=== PATIENT | female | born 1930 | race Caucasian/White ===

== ENCOUNTER 2017-06-30 04:39 | Inpatient (IN) | payer OTHER ==
[~2017-06-30] VITALS: Ht 147.3 cm; Wt 75.0 kg
[2017-06-30 05:20] LABS: BASOPHIL % 0.5 % (0-2); PLATELET COUNT 151 x10^3mcL (130-400)
[2017-06-30 05:21] LABS: CALCIUM 8.6 mg/dL (8.5-10.1); CARBON DIOXIDE 30.6 mmol/L (21-32); CHLORIDE SERUM 97 mmol/L (98-107); CREATININE SERUM 0.6 mg/dL (0.6-1.0); GLUCOSE SERUM 88 mg/dL (74-106); SODIUM SERUM 133 mmol/L (136-145)
[2017-06-30 05:39] LABS: ALBUMIN 2.9 g/dL (3.4-5.0); ALKALINE PHOSPHATASE 67 U/L (46-116); ALT/SGPT 24 U/L (14-59); AST/SGOT 39 U/L (15-37); BILIRUBIN TOTAL 0.4 mg/dL (0.20-1.00)
[2017-06-30] MEDS ORDERED: XARELTO20 M1 PO (05:55)
[2017-06-30] MEDS ORDERED: MECLIZINE HYD12.5 MG PO (05:56)
[2017-06-30 08:00] LABS: CHOLESTEROL/HDL RATIO 2.4; PHOSPHOROUS 3.2 mg/dL (2.5-4.9)
[2017-06-30 08:14] LABS: FREE T4 1.2 ng/dL (0.76-1.46); FREE THYROXINE INDEX 2.9 ug/dL (1.4-4.5); T4(THYROXINE) 7.8 ug/dL (4.7-13.3)
[2017-06-30 08:50] LABS: T3 TOTAL 0.69 ng/mL
[2017-06-30 09:07] LABS: UA SPECIFIC GRAVITY >=1.030 (1.005-1.035); microscopic required? YES; urine erythrocyte 1+ (NEGATIVE)
[2017-06-30 10:22] VITALS: BP 97/52
[2017-06-30 10:25] VITALS: BP 97/52
[2017-06-30 13:27] VITALS: BP 103/59
[2017-06-30 18:16] VITALS: BP 112/65
[2017-06-30 21:47] VITALS: BP 114/64
[2017-07-01 06:23] VITALS: BP 126/68
[2017-07-01 06:56] LABS: PLATELET COUNT 145 x10^3mcL (130-400); RED CELL DISTRIBUTION WIDTH 13.4 % (11.5-14.5)
[2017-07-01 07:01] LABS: CALCIUM 8.4 mg/dL (8.5-10.1); CARBON DIOXIDE 32.1 mmol/L (21-32); CHLORIDE SERUM 103 mmol/L (98-107); CREATININE SERUM 0.7 mg/dL (0.6-1.0); GLUCOSE SERUM 140 mg/dL (74-106); MAGNESIUM 2.1 mg/dL (1.8-2.4); PHOSPHOROUS 4.5 mg/dL (2.5-4.9); POTASSIUM SERUM 4.6 mmol/L (3.5-5.1); SODIUM SERUM 140 mmol/L (136-145)
[2017-07-01 10:33] VITALS: BP 105/59
[2017-07-01 11:30] LABS: BAND NEUTROPHIL 1 % (0-10); MONOCYTE 10 % (0-7); SEGMENTED NEUTROPHILS 57 % (37-75); rbc morphology (normal/abnorm) NORMAL (NORMAL)
[2017-07-01 14:44] VITALS: BP 118/69
[2017-07-01 19:00] VITALS: BP 120/69
[2017-07-01 21:42] VITALS: BP 121/76
[2017-07-02 06:21] VITALS: BP 113/84
[2017-07-02 06:28] LABS: PLATELET COUNT 152 x10^3mcL (130-400); RED CELL DISTRIBUTION WIDTH 13.4 % (11.5-14.5)
[2017-07-02 06:42] LABS: CALCIUM 8.8 mg/dL (8.5-10.1); CARBON DIOXIDE 28.3 mmol/L (21-32); CHLORIDE SERUM 104 mmol/L (98-107); CREATININE SERUM 0.6 mg/dL (0.6-1.0); GLUCOSE SERUM 142 mg/dL (74-106); PHOSPHOROUS 2.3 mg/dL (2.5-4.9); POTASSIUM SERUM 4.1 mmol/L (3.5-5.1); SODIUM SERUM 138 mmol/L (136-145)
[2017-07-02 09:35] VITALS: BP 129/64
[2017-07-02 10:51] LABS: BAND NEUTROPHIL 18 % (0-10); BASOPHIL 0 % (0-2); MONOCYTE 9 % (0-7); SEGMENTED NEUTROPHILS 60 % (37-75)
[2017-07-02 10:52] LABS: PLATELET MORPHOLOGY PLATELETS NORMAL
[2017-07-02 12:15] VITALS: BP 109/71
[2017-07-02 17:10] VITALS: BP 152/79
[2017-07-02 22:42] VITALS: BP 163/140
[2017-07-03] VITALS (8 sets, daily range): BP systolic 110–167; BP diastolic 55–101
[2017-07-03 06:34] LABS: PLATELET COUNT 161 x10^3mcL (130-400); RED CELL DISTRIBUTION WIDTH 13.4 % (11.5-14.5)
[2017-07-03 06:49] LABS: BASOPHIL % 0 % (0-2)
[2017-07-03 06:58] LABS: CALCIUM 9.3 mg/dL (8.5-10.1); CARBON DIOXIDE 30.6 mmol/L (21-32); CHLORIDE SERUM 105 mmol/L (98-107); CREATININE SERUM 0.5 mg/dL (0.6-1.0); GLUCOSE SERUM 80 mg/dL (74-106); MAGNESIUM 2.1 mg/dL (1.8-2.4); PHOSPHOROUS 1.9 mg/dL (2.5-4.9); POTASSIUM SERUM 3.7 mmol/L (3.5-5.1); SODIUM SERUM 143 mmol/L (136-145)
[2017-07-04 05:31] VITALS: BP 119/71
[2017-07-04 09:01] VITALS: BP 133/78
[2017-07-04 14:09] VITALS: BP 120/80
[2017-07-04 16:41] LABS: BASOPHIL % 0.3 % (0-2); PLATELET COUNT 136 x10^3mcL (130-400); RED CELL DISTRIBUTION WIDTH 13.6 % (11.5-14.5)
[2017-07-04 17:34] VITALS: BP 133/74
[2017-07-04 21:01] VITALS: BP 137/74
[2017-07-05 05:36] VITALS: BP 140/74
[2017-07-05 06:44] LABS: BASOPHIL % 0.3 % (0-2); PLATELET COUNT 148 x10^3mcL (130-400); RED CELL DISTRIBUTION WIDTH 13.3 % (11.5-14.5)
[2017-07-05 06:50] LABS: CALCIUM 8.5 mg/dL (8.5-10.1); CARBON DIOXIDE 35.2 mmol/L (21-32); CHLORIDE SERUM 103 mmol/L (98-107); CREATININE SERUM 0.5 mg/dL (0.6-1.0); GLUCOSE SERUM 89 mg/dL (74-106); POTASSIUM SERUM 3.8 mmol/L (3.5-5.1); SODIUM SERUM 141 mmol/L (136-145)
[2017-07-05 09:55] VITALS: BP 118/69
[2017-07-05 13:50] VITALS: BP 135/64
[2017-07-05] MEDS ORDERED: COL100 PO (15:54)
[2017-07-05] MEDS ORDERED: NPHOS PO (15:54)
[2017-07-05] MEDS ORDERED: ZOFI IV (15:54)
[2017-07-05] MEDS ORDERED: VANCOMYCIN1 GM/200 M IV (15:54)
[2017-07-05] MEDS ORDERED: TYL325 PO (15:54)
[2017-07-05] MEDS ORDERED: LEVAQUIN750 MG PO (15:54)
[2017-07-05] MEDS ORDERED: PEP20 PO (15:54)
[2017-07-05] MEDS ORDERED: TAM75 PO (15:54)
[2017-07-05] MEDS ORDERED: XARELTO20 M1 PO (15:54)
[2017-07-05] MEDS ORDERED: MECLIZINE HCL12.5 MG PO (15:54)
[2017-07-05] MEDS ORDERED: ACETYLCYSTEINE30 ML HHN (15:54)
[2017-07-05] MEDS ORDERED: ROBDML PO (15:54)
[2017-07-05] MEDS ORDERED: LAC PO (15:54)
[2017-07-05] MEDS ORDERED: IPRATROPIUM BROM3 M2 HHN ×2 (15:54)
[2017-07-05] MEDS ORDERED: MONTELUKAST SOD10 M1 PO (15:54)
[2017-07-05 17:50] VITALS: BP 131/88
== END 2017-07-05 20:32 | DRG 137 ==
LOC: EDBD 04:39 → ED 04:39 → DU 05:57
PROVIDERS: Emergency Medicine; Family Medicine
DX: J69.0 Pneumonitis due to inhalation of food and vomit (principal); J96.00 Acute respiratory failure, unspecified whether with hypoxia or hypercapnia; N17.0 Acute kidney failure with tubular necrosis; E44.0 Moderate protein-calorie malnutrition; J09.X2 Influenza due to identified novel influenza A virus with other respiratory manifestations; E87.1 Hypo-osmolality and hyponatremia; E87.8 Other disorders of electrolyte and fluid balance, not elsewhere classified; F03.90 Unspecified dementia, unspecified severity, without behavioral disturbance, psychotic disturbance, mood disturbance, and anxiety; R31.9 Hematuria, unspecified; E66.9 Obesity, unspecified; Z68.34 Body mass index [BMI] 34.0-34.9, adult; N94.89 Other specified conditions associated with female genital organs and menstrual cycle; I82.812 Embolism and thrombosis of superficial veins of left lower extremity; N39.0 Urinary tract infection, site not specified
CPT/HCPCS: 83880; 84439; 87804; 94150; 97110-GP; 97530-GP; J0132; J0696; J1956; J2405; J2920; J2930; J3370; J3490; J7030; J7040; J7620; J8597; Q0092